=== PATIENT | male | born 1995 | race Caucasian/White ===

== ENCOUNTER 2020-06-02 07:25 | Day surgery (SDC) | payer BC ==
[~2020-06-02] VITALS: Ht 185.4 cm; Wt 79.1 kg
[~2020-06-02 07:25] MED LIST: CYCLOBENZAPRINE10 MG PO; METHYLPREDNISOLO4 M1 PO
--- NOTE | 2020-06-02 08:55 | NUR ---
06/02/20 0855 Kelsie Fox 0845 PATIENT ARRIVES TO PACU UNRESPONSIVE TO PAIN. RESP EVEN AND UNLABORED, MASK AT 6 LITERS.
[2020-06-02] MEDS ORDERED: ACETAMINOPHEN500 MG PO (09:03)
[2020-06-02] MEDS ORDERED: OXYCODON-ACETA1 EAC2 PO (09:03)
[2020-06-02] MEDS ORDERED: IBUPROFEN600 MG PO (09:03)
--- NOTE | 2020-06-02 09:32 | NUR ---
REPORT RECEIVED FROM REFINERY OPERATOR HELPER. VSS, PT GROGGY. SNACK AND ICE WATER PROVIDED. MÓNICA WELL. RESTS COMFORTABLY WITH MAKI HUGGER. VSS. FULL SENSATION TO UPPER LEFT EXTREMITY, PINK. CALL LIGHT WITHIN REACH AND SIDE RAILS IN PLACE.
--- NOTE | 2020-06-02 10:20 | NUR ---
MORE ICED WATER GIVEN.
--- NOTE | 2020-06-05 15:35 | OR ---
[facility] [address], [place] [address] Signed DATE OF OPERATION: 06/02/2020 SURGEON: Christopher Gramajo MD PREOPERATIVE DIAGNOSIS: Left axillary soft tissue mass, inflamed. POSTOPERATIVE DIAGNOSES: 1. Left axillary soft tissue mass, inflamed. 2. Probable epidermal inclusion cyst (very large). PROCEDURE: Excision of left inflamed axillary soft tissue mass, probable epidermal inclusion cyst. ANESTHESIA: General LMA, david Cynthia, ORACLE BUSINESS ANALYST and local 20 mL of 0.25% Marcaine with epinephrine. 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 It is occasionally quite uncomfortable and most recently progressively so. He has had no drainage from the area. It appears erythematous and inflamed. It may well represent an epidermal inclusion cyst that has become very large at least 4 cm in size. I have recommended excision of the lesion for both diagnosis and definitive treatment. The risks of bleeding, infection, recurrence and so forth were reviewed with him. He understands and wished to proceed. FINDINGS: Indeed the lesion was consistent with an epidermal inclusion cyst, which was inflamed and had some purulent material within the center portion of it. Complete excision was accomplished. There were no complications. DESCRIPTION OF PROCEDURE: The patient was brought in the operating room, given a general LMA type anesthetic. Preoperative antibiotic Ancef was given. Sequential compression device stockings were used. Heparin subcutaneously administered. After successful anesthesia, the left axilla was prepared with a Betadine based solution and draped sterilely. An elliptical incision was made to include skin. The central portion of the was approximately 4 cm. Excision was undertaken with sharp dissection and ultimately electrocautery excising the lesion completely. Entry to the lesion showed purulent type Electronically Signed By: CHRISTOPHER GRAMAJO MD 06/05/20 1535 PATIENT NAME: CHARLENE ROWLEY OPERATIVE REPORT DATE OF : [birth year] REPORT #: [id number] PHYSICIAN: CHRISTOPHER GRAMAJO MD PCP: NO PRIMARY CARE PHYSICIAN REPORT IS CONFIDENTIAL AND NOT TO BE RELEASED WITHOUT AUTHORIZATION [facility] [address] [place], [place] [address] Signed thin fluid, but complete excision was accomplished. The wound was irrigated copiously and then secured for hemostasis with electrocautery. The wound was closed with interrupted 2-0 Vicryl in deep dermal layer. Steri-Strips were applied as was a silver sponge dressing. He tolerated procedure well, was extubated without problem and taken to the recovery room in good condition. BLOOD LOSS: Minimal. COMPLICATIONS: None. MD JAQUI Ji/MODL /[id number] cc: Shannon Rowley MD Copies: SHANNON ROWLEY MD ~ Electronically Signed By: CHRISTOPHER GRAMAJO MD 06/05/20 1535 PATIENT NAME: CHARLENE ROWLEY OPERATIVE REPORT DATE OF : [birth year] REPORT #: [id number] PHYSICIAN: CHRISTOPHER GRAMAJO MD PCP: NO PRIMARY CARE PHYSICIAN REPORT IS CONFIDENTIAL AND NOT TO BE RELEASED WITHOUT AUTHORIZATION
--- NOTE | 2020-06-06 10:43 | PATH ---
[facility] [address] [facility] [place], [place] [address] Signed SPECIMEN(S): A LEFT AXILLARY MASS SPECIMEN SOURCE: A. LEFT AXILLARY MASS CLINICAL HISTORY: Excision left axillary soft tissue mass. FINAL PATHOLOGIC DIAGNOSIS: Skin and soft tissue, left axillary mass, excision: - Features compatible with a ruptured epidermoid inclusion cyst. - See comment. COMMENT: Sections demonstrate exuberant dermal acute and chronic inflammation with abscess formation, granulation tissue formation, and foreign body type giant cell reaction. Numerous fragments of keratin are present within this inflammation as well as an adjacent acutely inflamed portion of squamous epithelium. A definitive cyst wall is not identified. Correlation with clinical findings is recommended. NAL:cml:C2NR MICROSCOPIC EXAMINATION: Histologic sections of all submitted blocks are examined by light microscopy. These findings, together with the gross examination, support the pathologic diagnosis. GROSS DESCRIPTION: The specimen, labeled "NR, A," and designated on the requisition "left axillary mass," is received in formalin and consists of an unoriented, yellow, lobulated, 4.1 x 3.2 x up to 1.7 cm tissue piece, with an overlying, irregularly-shaped, 3.2 x 1.6 cm skin segment with an ill-defined, ?-shaped, 3.1 x 1.2 cm defect with protruding, rivera to yellow rubbery tissue. The specimen is cross-sectioned to reveal an ill-defined, 1.7 x 1 0.4 x 0.9 cm possible cystic cavity lined with an ill-defined, red-purple discolored tissue and 0.2 cm from the resection margin. The cavity is without contents. The remaining cut surface is comprised of yellow fibrofatty and rivera-white fibroglandular tissue. Fibroglandular tissue comprises approximately 5% of the remaining tissue. An additional discrete mass/lesion is not grossly PATIENT NAME: CHARLENE AMADOR PATHOLOGY DATE OF : [birth year] REPORT #: [id number] PHYSICIAN: MAHAD PATHOLOGY PCP: NO PRIMARY CARE PHYSICIAN REPORT IS CONFIDENTIAL AND NOT TO BE RELEASED WITHOUT AUTHORIZATION [facility] [address] [place], [place] [address] Signed identified. Product Management Specialist sections are submitted in three cassettes (A1-A3). AI (under the direct supervision of a pathologist) The Gross Description was prepared using a voice recognition system. The report was reviewed for accuracy; however, sound-alike word errors, addition and/or deletions may occur. If there is any question about this report, please contact Client Services. PERFORMING LABORATORY: The technical component was performed by [employer], [address] [place] [id number] (Supervisor Fish Bait Processing: Dina Gillette MD; CLIA# [id number]). [facility] [address] [address] (CLIA# [id number]). Diagnostician: Evelyn Dorantes MD Pathologist Electronically Signed 06/06/2020 Copies: ~ PATIENT NAME: CHARLENE AMADOR PATHOLOGY DATE OF : [birth year] REPORT #: [id number] PHYSICIAN: MAHAD PATHOLOGY PCP: NO PRIMARY CARE PHYSICIAN REPORT IS CONFIDENTIAL AND NOT TO BE RELEASED WITHOUT AUTHORIZATION
== END 2020-06-02 10:45 | disposition home or self-care (01) ==
LOC: DS 07:25
PROVIDERS: ATTEND Surgery
PROC: 0JBF0ZZ Excision of Left Upper Arm Subcutaneous Tissue and Fascia, Open Approach (ICD-10-PCS; principal; 2020-06-02 08:15)
DX: R22.32 Localized swelling, mass and lump, left upper limb (principal)
CPT/HCPCS: 00404; J0690; J1100; J1644; J1885; J2001; J2250; J2405; J2704; J7121